=== PATIENT | female | born 1970 | race Caucasian/White ===

== ENCOUNTER 2021-06-10 13:47 | Outpatient (REF) | payer MEDICARE, SELFPAY ==
[2021-06-10 15:03] LABS: Binax Internal Control QC Valid; Binax Lot number: 9864; Binax Now Covid-19 Ag Negative (Negative)
== END 2021-06-10 13:48 | disposition home or self-care (01) ==
LOC: HO.LAB 13:47
PROVIDERS: PCP Internal Medicine; Visit Provider Internal Medicine
DX: Z20.822 Contact with and (suspected) exposure to COVID-19 (principal)
CPT/HCPCS: 36415; C9803

== ENCOUNTER 2021-06-21 09:50 | Outpatient (REF) | payer MEDICARE, SELFPAY ==
[2021-06-21 10:44] LABS: Binax Internal Control QC Valid; Binax Now Covid-19 Ag Positive (Negative)
== END 2021-06-21 09:51 | disposition home or self-care (01) ==
LOC: HO.LAB 09:50
PROVIDERS: Visit Provider Internal Medicine
DX: Z20.822 Contact with and (suspected) exposure to COVID-19 (principal)
CPT/HCPCS: C9803

== ENCOUNTER 2021-10-07 09:35 | Outpatient (REF) | payer MEDICARE, SELFPAY ==
[2021-10-07 11:20] LABS: MANUAL DIFF FLAG NO
[2021-10-07 11:35] LABS: Basophils Percent Auto 0.5 % (0-2); Eosinophils Absolute Auto 0.3 X10*3/uL (0.0-0.4); Eosinophils Percent Auto 3.8 % (0-4); Hematocrit 40.9 % (37.0-47.0); Hemoglobin 13.7 g/dl (12.0-16.0); Imm Gran Abs Auto 0.02 X10*3/uL (0.00-0.03); Imm Gran Pct Auto 0.3 % (0.0-0.4); Lymphocytes Absolute Auto 1.9 X10*3/uL (1.2-4.9); Lymphocytes Percent Auto 25.8 % (20-40); Mean Corpuscular HGB Conc 33.5 g/dl (31.0-35.0); Mean Corpuscular Hemoglobin 29.9 pg (27.0-33.0); Mean Corpuscular Volume 89.3 fL (80.0-98.0); Mean Platelet Volume 10.6 fL (9.4-12.3); Monocytes Absolute Auto 0.5 X10*3/uL (0.1-1.2); Monocytes Percent Auto 7.3 % (2-11); Neutrophils Absolute Auto 4.6 x10*3/uL (2.0-8.3); Neutrophils Percent Auto 62.3 % (45-73); Platelet Count 293 X10*3/uL (160-400); Red Blood Count 4.58 X10*6/uL (4.20-5.50); White Blood Count 7.4 X10*3/uL (4.8-10.8)
[2021-10-07 12:40] LABS: Alanine Aminotransferase 22 U/L (0-31); Albumin Level 4.3 g/dL (3.5-5.0); Alkaline Phosphatase 77 U/L (39-117); Anion Gap 13 (12-20); Aspartate Amino Transferase 14 U/L (5-31); Bilirubin Total 0.6 mg/dL (0.0-1.0); Blood Urea Nitrogen 23 mg/dL (9-16); Calcium 10.1 mg/dL (8.4-10.2); Carbon Dioxide 28 mmol/L (22-29); Chloride 99 mmol/L (96-108); Cholesterol 219 mg/dL; Estimated Glomerular Filt Rate > 60; Glucose Fasting 102 mg/dL (60-99); HDL Cholesterol 51 mg/dL; LDL Cholesterol Calculated 143 mg/dl; Potassium 4.9 mmol/L (3.3-5.1); Sodium 135 mmol/L (135-145); Total Protein 7.2 g/dL (6.5-8.0); Triglycerides 128 mg/dL
[2021-10-07 13:01] LABS: Thyroid Stimulating Hormone 0.96 uIU/mL (0.32-4.0)
== END 2021-10-07 09:36 | disposition home or self-care (01) ==
LOC: HO.HMGCLDS 09:35
PROVIDERS: PCP Internal Medicine; Visit Provider Internal Medicine
DX: Z00.00 Encounter for general adult medical examination without abnormal findings (principal); J45.909 Unspecified asthma, uncomplicated; I10 Essential (primary) hypertension; Z68.36 Body mass index [BMI] 36.0-36.9, adult
CPT/HCPCS: 36415; 80053; 80061; 84443; 85025

== ENCOUNTER 2022-07-18 11:56 | Outpatient (REF) | payer MEDICARE, MEDICAID, SELFPAY ==
--- NOTE | ~2022-07-18 | XR_ITS ---
EXAMINATION: XR HIP, RIGHT CLINICAL INFORMATION: Osteoarthritis. COMPARISON: None TECHNIQUE: Two views of the right hip. FINDINGS: No significant joint space narrowing or marginal osteophytes. Tiny lateral acetabular subchondral cysts. No acute fracture or dislocation. No concerning lytic or blastic osseous lesion. No abnormal soft tissue calcification. Prominent stool partially visualized within the rectum. XR/XR hip RT min 2V IMPRESSION: 1. Minimal right hip arthrosis. 2. Prominent stool within the rectum.
== END 2022-07-18 11:57 | disposition home or self-care (01) ==
LOC: HO.XRAY 11:56
PROVIDERS: PCP Internal Medicine; Visit Provider Internal Medicine
DX: M16.11 Unilateral primary osteoarthritis, right hip (principal)
CPT/HCPCS: 73502

== ENCOUNTER → 2022-08-21 13:24 | Outpatient (BNVA) | payer MEDICARE, MEDICAID, SELFPAY | PROVIDERS: PCP Internal Medicine; Visit Provider Orthopaedic Surgery | DX: M70.71 Other bursitis of hip, right hip (principal); M54.16 Radiculopathy, lumbar region; R26.9 Unspecified abnormalities of gait and mobility | CPT/HCPCS: 99202 ==

== ENCOUNTER 2023-05-10 11:36 | Outpatient (REF) | payer OTHER, MEDICAID, SELFPAY ==
[2023-05-10 14:01] LABS: Anion Gap 11 (12-20); Blood Urea Nitrogen 13 mg/dL (9-16); Calcium 10.2 mg/dL (8.4-10.2); Carbon Dioxide 27 mmol/L (22-29); Chloride 103 mmol/L (96-108); Estimated Glomerular Filt Rate > 60; Potassium 4.1 mmol/L (3.3-5.1); Sodium 137 mmol/L (135-145)
== END 2023-05-10 11:37 | disposition home or self-care (01) ==
LOC: HO.10HDL 11:36
PROVIDERS: Visit Provider Internal Medicine Nephrology
DX: I10 Essential (primary) hypertension (principal); N26.1 Atrophy of kidney (terminal)
CPT/HCPCS: 36415; 80051; 82310; 82565; 84520

== ENCOUNTER 2023-07-30 11:58 | Outpatient (REF) | payer OTHER, SELFPAY ==
[2023-07-30 13:21] LABS: Anion Gap 15 (12-20); Blood Urea Nitrogen 20 mg/dL (9-16); Calcium 10.7 mg/dL (8.4-10.2); Carbon Dioxide 32 mmol/L (22-29); Chloride 95 mmol/L (96-108); Estimated Glomerular Filt Rate 56; Potassium 3.8 mmol/L (3.3-5.1); Sodium 138 mmol/L (135-145)
== END 2023-07-30 11:59 | disposition home or self-care (01) ==
LOC: HO.LAB 11:58
PROVIDERS: Visit Provider Internal Medicine Nephrology
DX: I10 Essential (primary) hypertension (principal)
CPT/HCPCS: 36415; 80051; 82310; 82565; 84520

== ENCOUNTER 2023-07-31 15:07 | Outpatient (AMB) | payer OTHER, SELFPAY ==
[2023-07-31 16:32] VITALS: BP 168/100; PULSE 83; O2SAT 97; BMI 35.5
--- NOTE | 2023-07-31 16:32 | HO.NEPHOV_ITS ---
HPI HPI Comments History of Present Illness Details I would the privilege of seeing Emely in follow-up for hypertension. She has longstanding high blood pressure on multiple antihypertensive medications. She has not lost any weight. She is on amlodipine 10 mg, chlorthalidone 25 mg, losartan 100 mg daily, metoprolol succinate 100 mg daily. She had been worked up in the past to rule out secondary etiology. She has not strict with low- sodium diet. She denies chest pain, shortness of breath, paroxysmal nocturnal dyspnea, orthopnea, pedal edema, urinary or orthostatic symptoms. She does not take any excessive nonsteroidal anti-inflammatories. She has no history of drug use. She has no headache, visual disturbances, diarrhea. She claims to be compliant with her medications. [facility] Medical History (Updated 08/06/23 @ 21:46 by David Echavarria MD) DJD (degenerative joint disease) Nephrolithiasis Atrophy of kidney Hypertension Surgical History Previous section Family History (Updated 07/31/23 @ 16:40 by Arianna Marie MA) Mother Hypertension Sister Hypertension Social History (Updated 07/31/23 @ 16:39 by Arianna Marie MA) Alcohol intake: never Patient Tobacco Use Status: Former Tobacco user Current occupational status: unemployed Vital Signs 07/31/23 16:32 Height 5 ft 5 in Weight 213 lb 8 oz BMI 35.5 BP 168/100 H Blood Pressure Location Rt brachial Position Sitting Pulse 83 Pulse Source Pulse Oximeter Pulse Oximetry (%) 97 Oxygen Delivery Method Room Air Physical Exam Vital Signs: Last Vital Signs Pulse 83 07/31/23 16:32 BP 168/100 H 07/31/23 16:32 Pulse Ox 97 07/31/23 16:32 Oxygen Delivery Method Room Air 07/31/23 16:32 BMI result Body Mass Index 35.5 Const General: comfortable and no acute distress Orientation/consciousness: patient oriented x3 HEENT Head: Yes normocephalic Mouth: Normal oral and palatal mucosa present Eyes EOM: EOMs intact bilaterally Neck Neck: Yes supple Resp Auscultation: clear to auscultation bilaterally Cardio Jugular venous distension: no JVD Rate: regular rate GI Palpation (GI): Soft to palpation Auscultation: normal bowel sounds General: Yes no CVA tenderness Back/Spine/Pelvis Back: no CVA tenderness Skin General skin exam: no rashes or lesions noted Neuro General: patient oriented x3 and moves all extremities Extrem General: Yes no pedal edema Assessment & Plan Assessment & Plan (1) Hypertension: Code(s): I10 - Essential (primary) hypertension Qualifiers: Hypertension type: secondary to other renal disorders Qualified Code(s): I15.1 - Hypertension secondary to other renal disorders (2) Nephrolithiasis: Code(s): N20.0 - Calculus of kidney (3) Atrophy of kidney: Code(s): N26.1 - Atrophy of kidney (terminal) Plan Emely is known to have hypertension for a long time. There is history of atrophy of one kidney. I have not seen any recent renal imaging which I plan to order after next visit. She has mild CKD. She has not known to have any significant proteinuria. She has not strict with a low-sodium diet. She needs to lose weight. She should avoid nonsteroidal anti-inflammatories and maintain good hydration. She is on statins. I asked her to continue metoprolol 100 mg daily along with losartan 100 mg daily, chlorthalidone 25 mg daily as well as amlodipine 10 mg daily. She is going to follow-up with me in a week time. If her blood pressure continues to be on the higher side I shall discontinue her amlodipine and put her on nifedipine 60 mg daily. I will order for the blood work and urine studies at that time including a repeat workup to rule out secondary etiology causing uncontrolled hypertension. She does not have any retinopathy, LVH, coronary artery disease or diabetes mellitus. All these have been discussed in detail. All her questions were answered. Follow-up given. Coding Level of Care Code Est Pt Level 4 (94358) Diagnoses Hypertension secondary to other renal disorders I15.1 Hypertension type: secondary to other renal disorders Nephrolithiasis N20.0 Atrophy of kidney N26.1 Results Reviewed Nephrology Results: Hgb 13.7 g/dl (12.0-16.0) 10/07/21 WBC 7.4 X10*3/uL (4.8-10.8) 10/07/21 Plt Count 293 X10*3/uL (160-400) 10/07/21 Sodium 138 mmol/L (135-145) 07/30/23 Potassium 3.8 mmol/L (3.3-5.1) 07/30/23 Chloride 95 mmol/L (96-108) L 07/30/23 Carbon Dioxide 32 mmol/L (22-29) H 07/30/23 BUN 20 mg/dL (9-16) H 07/30/23 Creatinine 1.03 mg/dL (0.5-1.4) 07/30/23 Calcium 10.7 mg/dL (8.4-10.2) H 07/30/23
== END 2023-07-31 17:01 | disposition home or self-care (01) ==
PROVIDERS: PCP Internal Medicine; Visit Provider Internal Medicine Nephrology
DX: I15.1 Hypertension secondary to other renal disorders (principal); N20.0 Calculus of kidney; N26.1 Atrophy of kidney (terminal)
CPT/HCPCS: 99214

== ENCOUNTER → 2023-07-31 15:07 | Outpatient (BNVA) | payer OTHER, SELFPAY | PROVIDERS: PCP Internal Medicine; Visit Provider Internal Medicine Nephrology ==

== ENCOUNTER 2023-08-10 14:20 | Outpatient (AMB) | payer OTHER, SELFPAY ==
--- NOTE | 2023-08-10 14:27 | HO.NEPHOV ---
HPI HPI Comments History of Present Illness Details I would the privilege of seeing Emely in follow-up for hypertension. She has longstanding high blood pressure on multiple antihypertensive medications. She has not lost any weight. She is on amlodipine 10 mg, chlorthalidone 25 mg, losartan 100 mg daily, metoprolol succinate 100 mg daily. She had been worked up in the past to rule out secondary etiology. She has not strict with low-sodium diet. She denies chest pain, shortness of breath, paroxysmal nocturnal dyspnea, orthopnea, pedal edema, urinary or orthostatic symptoms. She does not take any excessive nonsteroidal anti-inflammatories. She has no history of drug use. She has no headache, visual disturbances, diarrhea. 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 She has history of multiple UTIs, most of the time the urine grew miner sensitive E coli. She had one episode of nephrolithiasis at the left UPJ. At that time she underwent cystoscopy with ESWL with a left retrograde pyelogram and left ureteral stent placement .She claims to be compliant with her medications. [facility] Medical History (Updated 08/10/23 @ 14:46 by David Echavarria MD) DJD (degenerative joint disease) Nephrolithiasis Atrophy of kidney Hypertension Surgical History Previous section Family History Mother Hypertension Sister Hypertension Social History Alcohol intake: never Patient Tobacco Use Status: Former Tobacco user Current occupational status: unemployed Vital Signs 08/10/23 14:28 Height 5 ft 5 in Weight 217 lb BMI 36.1 BP 156/100 H Blood Pressure Location Lt brachial Position Sitting Pulse 80 Pulse Source Pulse Oximeter Pulse Oximetry (%) 96 Oxygen Delivery Method Room Air Physical Exam Vital Signs: Last Vital Signs Pulse 80 08/10/23 14:28 BP 156/100 H 08/10/23 14:28 Pulse Ox 96 08/10/23 14:28 Oxygen Delivery Method Room Air 08/10/23 14:28 BMI result Body Mass Index 36.1 Const General: comfortable and no acute distress Orientation/consciousness: patient oriented x3 HEENT Head: Yes normocephalic Mouth: Normal oral and palatal mucosa present Eyes EOM: EOMs intact bilaterally Neck Neck: Yes supple Resp Auscultation: clear to auscultation bilaterally Cardio Jugular venous distension: no JVD Rate: regular rate GI Palpation (GI): Soft to palpation Auscultation: normal bowel sounds General: Yes no CVA tenderness Back/Spine/Pelvis Back: no CVA tenderness Skin General skin exam: no rashes or lesions noted Neuro General: patient oriented x3 and moves all extremities Extrem General: Yes no pedal edema Assessment & Plan Assessment & Plan (1) Atrophy of kidney: Code(s): N26.1 - Atrophy of kidney (terminal) (2) Nephrolithiasis: Code(s): N20.0 - Calculus of kidney (3) Hypertension: Code(s): I10 - Essential (primary) hypertension Qualifiers: Hypertension type: secondary to other renal disorders Qualified Code(s): I15.1 - Hypertension secondary to other renal disorders (4) Hypercalcemia: Code(s): E83.52 - Hypercalcemia Plan Emely is known to have hypertension for a long time. She has atrophy of one kidney. I have ordered nuclear renal imaging to determine whether she has any function on the atrophic kidney. She has mild CKD. She has not known to have any significant proteinuria. She has not strict with a low-sodium diet. She needs to lose weight. She should avoid nonsteroidal anti-inflammatories and maintain good hydration. She is on statins. I ordered nuclear scan to ascertain the function of her left kidney. I asked her to continue metoprolol 100 mg daily along with losartan 100 mg daily, chlorthalidone 25 mg daily . I discontinued her amlodipine and started her on nifedipine 60 mg daily. She does not have any retinopathy, LVH, coronary artery disease or diabetes mellitus. I ordered work up for hypercalcemia. It can be due to Chlorthalidone. All these have been discussed in detail. All her questions were answered. Follow-up given Orders: Orders NM renal flow w pharm int Today I10 - Essential (primary) hypertension, N26.1 - Atrophy of kidney (terminal) Vitamin D 1,25 dihydroxy Today I10 - Essential (primary) hypertension, N20.0 - Calculus of kidney, N26.1 - Atrophy of kidney (terminal) Vitamin D 25-OH Total Today I10 - Essential (primary) hypertension, N20.0 - Calculus of kidney, N26.1 - Atrophy of kidney (terminal) Parathyroid Hormone Intact Today I10 - Essential (primary) hypertension, N20.0 - Calculus of kidney, N26.1 - Atrophy of kidney (terminal) Immunofixation Pnl, Serum Today I10 - Essential (primary) hypertension, N20.0 - Calculus of kidney, N26.1 - Atrophy of kidney (terminal) Medications: New nifedipine ER 60 mg PO DAILY 30 tabs 4RF Coding Level of Care Code Est Pt Level 4 (53999) Diagnoses Atrophy of kidney N26.1 Nephrolithiasis N20.0 Hypertension secondary to other renal disorders I15.1 Hypertension type: secondary to other renal disorders Hypercalcemia E83.52 Results Reviewed Nephrology Results: Hgb 13.7 g/dl (12.0-16.0) 10/07/21 WBC 7.4 X10*3/uL (4.8-10.8) 10/07/21 Plt Count 293 X10*3/uL (160-400) 10/07/21 Sodium 138 mmol/L (135-145) 07/30/23 Potassium 3.8 mmol/L (3.3-5.1) 07/30/23 Chloride 95 mmol/L (96-108) L 07/30/23 Carbon Dioxide 32 mmol/L (22-29) H 07/30/23 BUN 20 mg/dL (9-16) H 07/30/23 Creatinine 1.03 mg/dL (0.5-1.4) 07/30/23 Calcium 10.7 mg/dL (8.4-10.2) H 07/30/23
[2023-08-10 14:28] VITALS: BP 156/100; PULSE 80; O2SAT 96; BMI 36.1
== END 2023-08-10 15:00 | disposition home or self-care (01) ==
PROVIDERS: PCP Internal Medicine; Visit Provider Internal Medicine Nephrology
DX: N26.1 Atrophy of kidney (terminal) (principal); N20.0 Calculus of kidney; I15.1 Hypertension secondary to other renal disorders; E83.52 Hypercalcemia
CPT/HCPCS: 99214

== ENCOUNTER → 2023-08-10 14:20 | Outpatient (BNVA) | payer OTHER, SELFPAY | PROVIDERS: PCP Internal Medicine; Visit Provider Internal Medicine Nephrology ==

== ENCOUNTER → 2023-09-13 12:03 | Outpatient (REF) | payer OTHER, SELFPAY ==
--- NOTE | ~2023-09-13 | NM_ITS ---
EXAMINATION: RENAL DYNAMIC IMAGING STUDY WITH LASIX CLINICAL INFORMATION: Atrophy of kidney. Calculated split renal function. COMPARISON: No previous renal scan is available for comparison. TECHNIQUE: Serial gamma scintillation camera images were obtained over the posterior trunk during the initial transit and subsequent distribution of a bolus intravenous injection of 10 mCi of Tc-99m DTPA. At 30 minutes later, 40 mg of Lasix was administered intravenously and an additional 14 minutes of images obtained. FINDINGS: Initial rapid sequence images show prompt and normal-appearing perfusion to the right kidney but markedly diminished perfusion to the left kidney. Subsequent sequential static images obtained up to 30 minutes show good concentration in the right kidney. There is markedly diminished concentration in the left kidney which is much smaller than the right. There is evidence of excretory function by 3 minutes post injection bilaterally, but this is significantly more intense on the right. There is faint visualization of activity in the right ureter and right side of the urinary bladder by 12 minutes post injection and this gradually increases in intensity. At 30 minutes postinjection there is good visualization of activity in the urinary bladder and only very mild retention in the renal collecting systems bilaterally. The intensity of activity in the right renal collecting system is greater than the left, the latter which is only minimal. Following Lasix administration, there is prompt and essentially complete washout of the small amount of retained activity in both renal collecting systems. At the end of the study there is no significant retention in either kidney and a full urinary bladder is visualized. Meaningful T-1/2 washout times following Lasix administration cannot be calculated on either side because of the minimal retention in both renal collecting systems at the time of Lasix administration. The relative function of the two kidneys based on the 2-3 minute images are: Left 20% and right 80%. NM/NM renal flow w pharm int IMPRESSION: LEFT KIDNEY: Markedly diminished perfusion and function. This kidney is significantly smaller in size than the right. There is no hydronephrosis or outflow obstruction. RIGHT KIDNEY: Normal perfusion and function. No hydronephrosis or outflow obstruction.
[2023-09-13 13:26] LABS: Parathyroid Hormone Intact 97.8 pg/mL (8.7-77.1)
[2023-09-13 13:43] LABS: Vitamin D 25-OH Total 16.3 ng/mL (>30)
[2023-09-17 13:48] LABS: IgA 229 mg/dL (47-310); IgG 1252 mg/dL (600-1640); IgM 165 mg/dL (50-300)
[2023-09-17 17:23] LABS: VITAMIN D (1,25 OH) D3 52 pg/mL; Vit D (1,25-Dihydroxy) Total 52 pg/mL (18-72); Vitamin D (1,25 OH) D2 <8 pg/mL
== END ==
LOC: HO.NUCMED 12:03
PROVIDERS: PCP Internal Medicine; Visit Provider Internal Medicine Nephrology
DX: N26.1 Atrophy of kidney (terminal) (principal); N20.0 Calculus of kidney; I10 Essential (primary) hypertension
CPT/HCPCS: 36415; 78708; 82306; 82652; 82784; 83970; 86334; A9539; J1940

== ENCOUNTER 2023-09-14 14:28 | Outpatient (AMB) | payer OTHER, SELFPAY ==
--- NOTE | 2023-09-14 14:30 | HO.NEPHOV_ITS ---
HPI HPI Comments History of Present Illness Details I had the privileg e of seeing Emely in follow-up for hyp ertension. She jon s longstanding hig h blood pressure o n multiple antihyp ertensive medicati ons. She has not lost any weight. She is on amlodipi ne 10 mg, chlortha lidone 25 mg, losa rtan 100 mg daily, metoprolol succin ate 100 mg daily. She had renal sca n which showed 20 % function on the left and 80 % on t he right. She has not strict with lo w-sodium diet. kamille denies chest dinorah n, shortness of br eath, paroxysmal n octurnal dyspnea, orthopnea, pedal e mandeep, urinary or o rthostatic symptom s. She does not t petra any excessive nonsteroidal anti- inflammatories. S he has no history of drug use. She has no headache, v isual disturbances , diarrhea. Small left kidney which was diagnosed whe n she was 15 years of age along with a left renal cyst . She has history of multiple UTIs, most of the time the urine grew miner sensitive E coli. She had one epis ode of nephrolithi asis at the left U PJ. At that time she underwent cyst oscopy with ESWL w ith a left retrogr patience pyelogram and left ureteral sten t placement .She c laims to be compli ant with her medic ations. She has n ot strict with low -sodium diet. She denies chest pain , shortness of tennille ath, paroxysmal no cturnal dyspnea, o rthopnea, pedal ed sandrita, urinary or or thostatic symptoms . She does not ta ke any excessive n onsteroidal anti-i nflammatories. kamille has no history o f drug use. She h as no headache, vi sual disturbances, diarrhea. she jon s an atrophic left kidney ( agenesis of the left kidne y which was diagno sed when she was [age] years of age) al rob with a left re nal cyst. She has history of multip le UTIs, most of t he time the urine grew miner sensitive E coli. She had one episode of nep hrolithiasis at th e left UPJ. At th at time she underw ent cystoscopy wit h ESWL with a left retrograde pyelog kota and left urete ral stent placemen t .She claims to b e compliant with h er medications. [facility] Medical History (Updated 08/10/23 @ 14:46 by David Echavarria MD) DJD (degenerative joint disease) Nephrolithiasis Atrophy of kidney Hypertension Surgical History Previous section Family History Mother Hypertension Sister Hypertension Social History Alcohol intake: never Patient Tobacco Use Status: Former Tobacco user Current occupational status: unemployed Vital Signs 09/14/23 14:31 Height 5 ft 5 in Weight 211 lb 4 oz BMI 35.2 BP 130/90 H Blood Pressure Location Rt brachial Position Sitting Pulse 84 Pulse Source Pulse Oximeter Pulse Oximetry (%) 97 Oxygen Delivery Method Room Air Physical Exam Vital Signs: Last Vital Signs Pulse 84 09/14/23 14:31 BP 130/90 H 09/14/23 14:31 Pulse Ox 97 09/14/23 14:31 Oxygen Delivery Method Room Air 09/14/23 14:31 BMI result Body Mass Index 35.2 Const General: comfortable and no acute distress Orientation/consciousness: patient oriented x3 HEENT Head: Yes normocephalic Mouth: Normal oral and palatal mucosa present Eyes EOM: EOMs intact bilaterally Neck Neck: Yes supple Resp Auscultation: clear to auscultation bilaterally Cardio Jugular venous distension: no JVD Rate: regular rate GI Palpation (GI): Soft to palpation Auscultation: normal bowel sounds General: Yes no CVA tenderness Back/Spine/Pelvis Back: no CVA tenderness Skin General skin exam: no rashes or lesions noted Neuro General: patient oriented x3 and moves all extremities Extrem General: Yes no pedal edema Assessment & Plan Assessment & Plan (1) Hypertension: Code(s): I10 - Essential (primary) hypertension Qualifiers: Hypertension type: secondary to other renal disorders Qualified Code(s): I15.1 - Hypertension secondary to other renal disorders (2) Nephrolithiasis: Code(s): N20.0 - Calculus of kidney (3) Hypercalcemia: Code(s): E83.52 - Hypercalcemia Plan Emely is known to have hypertension for a long time. She has atrophy of one kidney. Relative function of the 2 kidneys by nuclear scan showed left functioning at 20% and right functioning at 80%. Left kidney showed marked diminished perfusion and it was significantly smaller in size than the right. It had no hydronephrosis or up for obstruction. Right kidney appeared normal. She has mild CKD. She has not known to have any significant proteinuria. She has not strict with a low-sodium diet. She needs to lose weight. She should avoid nonsteroidal anti-inflammatories and maintain good hydration. She is on statins. I asked her to continue metoprolol 100 mg daily along with losartan 100 mg daily, chlorthalidone 25 mg daily along with nifedipine which I increased to 60 mg twice daily. She does not have any retinopathy, LVH, coronary artery disease or diabetes mellitus. Workup for hypercalcemia has been negative. It is most likely due to chlorthalidone. She has low vitamin-D levels. I may have to take her off chlorthalidone if her hypercalcemia persists. Once her hypercalcemia is resolved, I plan to initiate her on vitamin-D replacement. All these have been discussed in detail. All her questions were answered. Follow- up given Orders: Orders Calcium 09/14/23 E83.52 - Hypercalcemia, I15.1 - Hypertension secondary to other renal disorders, N20.0 - Calculus of kidney Creatinine 09/14/23 E83.52 - Hypercalcemia, I15.1 - Hypertension secondary to other renal disorders, N20.0 - Calculus of kidney Blood Urea Nitrogen 09/14/23 E83.52 - Hypercalcemia, I15.1 - Hypertension secondary to other renal disorders, N20.0 - Calculus of kidney Electrolytes 09/14/23 E83.52 - Hypercalcemia, I15.1 - Hypertension secondary to other renal disorders, N20.0 - Calculus of kidney Medications: Changed From nifedipine ER 60 mg PO DAILY 90 tabs 1RF To nifedipine ER 60 mg PO BID 3 months 180 tabs 1RF Coding Level of Care Code Est Pt Level 4 (34664) Diagnoses Hypertension secondary to other renal disorders I15.1 Hypertension type: secondary to other renal disorders Nephrolithiasis N20.0 Hypercalcemia E83.52 Results Reviewed Nephrology Results: Hgb 13.7 g/dl (12.0-16.0) 10/07/21 WBC 7.4 X10*3/uL (4.8-10.8) 10/07/21 Plt Count 293 X10*3/uL (160-400) 10/07/21 Sodium 138 mmol/L (135-145) 07/30/23 Potassium 3.8 mmol/L (3.3-5.1) 07/30/23 Chloride 95 mmol/L (96-108) L 07/30/23 Carbon Dioxide 32 mmol/L (22-29) H 07/30/23 BUN 20 mg/dL (9-16) H 07/30/23 Creatinine 1.03 mg/dL (0.5-1.4) 07/30/23 Calcium 10.7 mg/dL (8.4-10.2) H 07/30/23 PTH Intact 97.8 pg/mL (8.7-77.1) H 09/13/23
[2023-09-14 14:31] VITALS: BP 130/90; PULSE 84; O2SAT 97; BMI 35.2
== END 2023-09-14 15:00 | disposition home or self-care (01) ==
PROVIDERS: PCP Internal Medicine; Visit Provider Internal Medicine Nephrology
DX: I15.1 Hypertension secondary to other renal disorders (principal); N20.0 Calculus of kidney; E83.52 Hypercalcemia
CPT/HCPCS: 99214

== ENCOUNTER → 2023-09-14 14:28 | Outpatient (BNVA) | payer OTHER, SELFPAY | PROVIDERS: PCP Internal Medicine; Visit Provider Internal Medicine Nephrology ==

== ENCOUNTER 2024-01-01 11:46 | Outpatient (REF) | payer OTHER, SELFPAY ==
[2024-01-01 12:00] LABS: MANUAL DIFF FLAG NO
[2024-01-01 12:27] LABS: Basophils Absolute Auto 0.1 X10*3/uL (0.0-0.2); Basophils Percent Auto 0.6 % (0-2); Eosinophils Absolute Auto 0.2 X10*3/uL (0.0-0.4); Eosinophils Percent Auto 1.8 % (0-4); Hematocrit 41.6 % (37.0-47.0); Hemoglobin 14.1 g/dl (12.0-16.0); Imm Gran Abs Auto 0.03 X10*3/uL (0.00-0.03); Imm Gran Pct Auto 0.3 % (0.0-0.4); Lymphocytes Absolute Auto 2.7 X10*3/uL (1.2-4.9); Lymphocytes Percent Auto 29.8 % (20-40); Mean Corpuscular HGB Conc 33.9 g/dl (31.0-35.0); Mean Corpuscular Hemoglobin 30.1 pg (27.0-33.0); Mean Corpuscular Volume 88.7 fL (80.0-98.0); Mean Platelet Volume 10.3 fL (9.4-12.3); Monocytes Absolute Auto 0.5 X10*3/uL (0.1-1.2); Monocytes Percent Auto 5.9 % (2-11); Neutrophils Absolute Auto 5.5 x10*3/uL (2.0-8.3); Neutrophils Percent Auto 61.6 % (45-73); Platelet Count 245 X10*3/uL (160-400); Red Blood Count 4.69 X10*6/uL (4.20-5.50); White Blood Count 8.9 X10*3/uL (4.8-10.8)
[2024-01-01 12:30] LABS: Appearance Urine Cloudy; Color Urine Yellow; Glucose Urine UA Negative (Negative); Leukocyte Esterase Urine Small (1+) (Negative); Nitrite Urine Positive (Negative); Specific Gravity - Urine 1.015 (1.005-1.025); UMIC TRIGGER UA YES; Urine Blood Negative (Negative); Urine Ketones Negative (Negative); Urine Protein Negative (Neg-Trace)
[2024-01-01 12:36] LABS: Bacteria Urine 4+ (None Seen); Hyaline Casts Urine 0-2 /LPF (0-2); RBC Urine 0-2 /HPF (0-2)
[2024-01-01 12:52] LABS: Creatinine Urine 85.38 mg/dL; Microalbum/Creatinine Ratio Ur 15.2 ug/mg cr (<30); Total Protein Urine Random < 7 mg/dL (<12)
[2024-01-01 12:58] LABS: Anion Gap 17 (12-20); Blood Urea Nitrogen 15 mg/dL (9-16); Calcium 10.4 mg/dL (8.4-10.2); Carbon Dioxide 23 mmol/L (22-29); Chloride 102 mmol/L (96-108); Estimated Glomerular Filt Rate > 60; Potassium 3.9 mmol/L (3.3-5.1); Sodium 138 mmol/L (135-145); Uric Acid 4.4 mg/dL (2.4-5.7)
[2024-01-01 13:10] LABS: Parathyroid Hormone Intact 102.9 pg/mL (8.7-77.1)
[2024-01-01 13:15] LABS: Vitamin D 25-OH Total 26.4 ng/mL (>30)
== END 2024-01-01 11:47 | disposition home or self-care (01) ==
LOC: HO.LAB 11:46
PROVIDERS: PCP Internal Medicine; Visit Provider Internal Medicine
DX: N26.1 Atrophy of kidney (terminal) (principal)
CPT/HCPCS: 36415; 80051; 81001; 82043; 82306; 82310; 82565; 82570; 83970; 84156; 84520; 84550; 85025

== ENCOUNTER 2024-01-02 14:04 | Outpatient (AMB) | payer OTHER, SELFPAY ==
--- NOTE | 2024-01-02 14:28 | HO.NEPHOV_ITS ---
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 She has longstanding high blood pressure on multiple antihypertensive medications. She has lost some weight. She is on amlodipine 10 mg, chlorthalidone 25 mg, losartan 100 mg daily, metoprolol succinate 100 mg daily. She had been worked up in the past to rule out secondary etiology. She has not strict with low- sodium diet. She denies chest pain, shortness of breath, paroxysmal nocturnal dyspnea, orthopnea, pedal edema, urinary or orthostatic symptoms. She does not take any excessive nonsteroidal anti-inflammatories. She has no headache, visual disturbances, diarrhea. 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 She has history of multiple UTIs, most of the time the urine grew miner sensitive E coli. She had one episode of nephrolithiasis at the left UPJ. At that time she underwent cystoscopy with ESWL with a left retrograde pyelogram and left ureteral stent placement .She claims to be compliant with her medications [facility] Medical History (Updated 08/10/23 @ 14:46 by David Echavarria MD) DJD (degenerative joint disease) Nephrolithiasis Atrophy of kidney Hypertension Surgical History Previous section Family History Mother Hypertension Sister Hypertension Social History Alcohol intake: never Patient Tobacco Use Status: Former Tobacco user Current occupational status: unemployed Physical Exam Vital Signs: Last Vital Signs Pulse 65 01/02/24 14:29 BP 136/88 01/02/24 14:29 Pulse Ox 99 01/02/24 14:29 Oxygen Delivery Method Room Air 01/02/24 14:29 BMI result Body Mass Index 33.9 Const General: comfortable and no acute distress Orientation/consciousness: patient oriented x3 HEENT Head: Yes normocephalic Mouth: Normal oral and palatal mucosa present Eyes EOM: EOMs intact bilaterally Neck Neck: Yes supple Resp Auscultation: clear to auscultation bilaterally Cardio Jugular venous distension: no JVD Rate: regular rate GI Palpation (GI): Soft to palpation Auscultation: normal bowel sounds General: Yes no CVA tenderness Back/Spine/Pelvis Back: no CVA tenderness Skin General skin exam: no rashes or lesions noted Neuro General: patient oriented x3 and moves all extremities Extrem General: Yes no pedal edema Results Reviewed Nephrology Results: Hgb 14.1 g/dl (12.0-16.0) 01/01/24 WBC 8.9 X10*3/uL (4.8-10.8) 01/01/24 Plt Count 245 X10*3/uL (160-400) 01/01/24 Sodium 138 mmol/L (135-145) 01/01/24 Potassium 3.9 mmol/L (3.3-5.1) 01/01/24 Chloride 102 mmol/L (96-108) 01/01/24 Carbon Dioxide 23 mmol/L (22-29) 01/01/24 BUN 15 mg/dL (9-16) 01/01/24 Creatinine 0.89 mg/dL (0.5-1.4) 01/01/24 Calcium 10.4 mg/dL (8.4-10.2) H 01/01/24 PTH Intact 102.9 pg/mL (8.7-77.1) H 01/01/24 Urine Protein Negative mg/dL (Neg-Trace) 01/01/24 Urine Creatinine 85.38 mg/dL 01/01/24 Protein/Creatinin Ratio TNP 01/01/24 Assessment & Plan Assessment & Plan (1) Hypercalcemia: Code(s): E83.52 - Hypercalcemia Category: Medical (2) Atrophy of kidney: Code(s): N26.1 - Atrophy of kidney (terminal) Category: Medical (3) Nephrolithiasis: Code(s): N20.0 - Calculus of kidney Category: Medical (4) Hypertension: Code(s): I10 - Essential (primary) hypertension Category: Medical Qualifiers: Hypertension type: secondary to other renal disorders Qualified Code(s): I15.1 - Hypertension secondary to other renal disorders Danilo Han is known to have hypertension for a long time. She has atrophy of one kidney. Relative function of the 2 kidneys by nuclear scan showed left functioning at 20% and right functioning at 80%. Left kidney showed marked diminished perfusion and it was significantly smaller in size than the right. It had no hydronephrosis or up for obstruction. Right kidney appeared normal. She has mild CKD. She has not known to have any significant proteinuria. She has not strict with a low-sodium diet. She needs to lose weight. She should avoid nonsteroidal anti-inflammatories and maintain good hydration. She is on statins. I asked her to continue metoprolol 100 mg daily along with losartan 100 mg daily, chlorthalidone 25 mg daily along with nifedipine 60 mg daily. She does not have any retinopathy, LVH, coronary artery disease or diabetes mellitus. Workup for hypercalcemia has been negative. It is most likely due to chlorthalidone. I may have to take her off chlorthalidone if her hypercalcemia persists. All these have been discussed in detail. All her questions were answered. Follow-up given Orders: Orders Creatinine Today E83.52 - Hypercalcemia, I15.1 - Hypertension secondary to other renal disorders, N20.0 - Calculus of kidney, N26.1 - Atrophy of kidney (terminal) Blood Urea Nitrogen Today E83.52 - Hypercalcemia, I15.1 - Hypertension secondary to other renal disorders, N20.0 - Calculus of kidney, N26.1 - Atrophy of kidney (terminal) Electrolytes Today E83.52 - Hypercalcemia, I15.1 - Hypertension secondary to other renal disorders, N20.0 - Calculus of kidney, N26.1 - Atrophy of kidney (terminal) Calcium Today E83.52 - Hypercalcemia, I15.1 - Hypertension secondary to other renal disorders, N20.0 - Calculus of kidney, N26.1 - Atrophy of kidney ( terminal) Coding Level of Care Code Est Pt Level 4 (67055) Diagnoses Hypercalcemia E83.52 Atrophy of kidney N26.1 Nephrolithiasis N20.0 Hypertension secondary to other renal disorders I15.1 Hypertension type: secondary to other renal disorders
[2024-01-02 14:29] VITALS: BP 136/88; PULSE 65; O2SAT 99; BMI 33.9
== END 2024-01-02 15:05 | disposition home or self-care (01) ==
PROVIDERS: PCP Internal Medicine; Visit Provider Internal Medicine Nephrology
DX: E83.52 Hypercalcemia (principal); N26.1 Atrophy of kidney (terminal); N20.0 Calculus of kidney; I15.1 Hypertension secondary to other renal disorders
CPT/HCPCS: 99214

== ENCOUNTER → 2024-01-02 14:04 | Outpatient (BNVA) | payer OTHER, SELFPAY | PROVIDERS: PCP Internal Medicine; Visit Provider Internal Medicine Nephrology ==